=== PATIENT | female | born 2000 | race Caucasian/White ===

== ENCOUNTER 2021-10-27 23:32 | Emergency (ER) | payer MEDICAID ==
[~2021-10-27] VITALS: Ht 160 cm; Wt 77.1 kg
--- NOTE | 2021-10-27 23:45 | NUR ---
BIBSELF C/O "BLADDER PAIN" AND BURNING UPON URINATION X1 DAY. PT A/OX4. TOLERATING R/A WELL WITH NO SOB
--- NOTE | 2021-10-27 23:57 | NUR ---
URINE COLLECTED AND SENT TO LAB
[2021-10-28 00:17] LABS: BILIRUBIN,URINE SMALL (NEGATIVE); COLOR,URINE YELLOW (YELLOW); LEUKOCYTE ESTERASE ,URINE NEGATIVE (NEGATIVE); NITRITE, URINE NEGATIVE (NEGATIVE); PROTEIN,URINE NEGATIVE (NEGATIVE); UGLUCOSE NEGATIVE (NEGATIVE); UROBILINOGEN,URINE 0.2 EU/dL (0.2)
[2021-10-28 00:36] LABS: BACTERIA,URINE Many /HPF (None Seen); MUCUS,URINE Many /LPF (None Seen); RBC,URINE 0-2 /HPF (0-2); SQUAMOUS EPITHELIAL CELL,UR Many /HPF (None Seen)
[2021-10-28] MEDS ORDERED: PHEN-704 PO (00:48)
[2021-10-28] MEDS ORDERED: CEPH500C2 PO (00:48)
[2021-10-28] MEDS ORDERED: CEPHALEXIN MONOHYDRATE 500 MG CAPSULE PO ONE (00:51)
[2021-10-28 00:56] VITALS: BP 128/73
[2021-10-28] MEDS: CEPHALEXIN MONOHYDRATE 500 MG CAPSULE PO ONE (00:56)
== END 2021-10-28 00:57 | disposition home or self-care (01) ==
LOC: ER 23:37
DX: R30.0 Dysuria (principal); N30.80 Other cystitis without hematuria
CPT/HCPCS: 81001; 84703-TC; 87086-TC; 87491; 87591